=== PATIENT | female | born 1950 | race Caucasian/White ===

== ENCOUNTER → 2017-02-08 | Outpatient (CLI) | payer MEDICARE, OTHER ==
[~2017-02-08] MED LIST: ASPI-496 PO; ASPI325T17 PO; ATOR40TA78 PO; CHOL200024 PO; CLOP75TA52 PO; CRAN500C5 PO; DONE5TAB7 PO; ESTR30CR VG; ESTR42.53 VG; FLUO20CA19 PO; GLUC1CAP48 PO; ISOS30TA8 PO; ISOS60TA36 PO; LEVO25TA2 PO; LIOT5TAB3 PO; METO-93 PO; MULT-6 PO; NITR0.4T28 SL; OMEG500C3 PO; ORLI60CA2 PO; POLY17PO5 PO; TICA90TA PO; UBID100C41 PO; VITA150T PO
== END | disposition home or self-care (01) ==
LOC: CVU 06:35
PROVIDERS: ATTEND Physician Assistant Medical
DX: I08.0 Rheumatic disorders of both mitral and aortic valves (principal); I77.819 Aortic ectasia, unspecified site; I70.202 Unspecified atherosclerosis of native arteries of extremities, left leg; I25.10 Atherosclerotic heart disease of native coronary artery without angina pectoris; I70.0 Atherosclerosis of aorta; I10 Essential (primary) hypertension; E78.5 Hyperlipidemia, unspecified; I25.2 Old myocardial infarction; Z87.891 Personal history of nicotine dependence; Z82.49 Family history of ischemic heart disease and other diseases of the circulatory system
CPT/HCPCS: 93306; 93978

== ENCOUNTER → 2017-04-25 | Outpatient (CLI) | payer MEDICARE, OTHER | END | disposition home or self-care (01) | LOC: CVU 09:34 | PROVIDERS: ATTEND Registered Nurse | DX: I70.213 Atherosclerosis of native arteries of extremities with intermittent claudication, bilateral legs (principal); R41.3 Other amnesia; R53.1 Weakness; E78.5 Hyperlipidemia, unspecified; I10 Essential (primary) hypertension; I25.10 Atherosclerotic heart disease of native coronary artery without angina pectoris; I25.2 Old myocardial infarction; Z87.891 Personal history of nicotine dependence; Z95.5 Presence of coronary angioplasty implant and graft | CPT/HCPCS: 93922; 95819 ==

== ENCOUNTER 2017-05-03 11:16 | Emergency (ER) | payer MEDICARE, OTHER ==
[~2017-05-03] VITALS: Ht 162.6 cm; Wt 79.0 kg
[2017-05-03 13:36] LABS: BASOPHILS # (AUTO) 0.03 x10^3/uL (0-0.1); BASOPHILS % (AUTO) 1 % (0-1); EOSINOPHILS # (AUTO) 0.06 x10^3/uL (0-0.4); EOSINOPHILS % (AUTO) 2 % (1-7); LYMPHOCYTES # (AUTO) 0.52 x10^3/uL (1-3.4); LYMPHOCYTES % (AUTO) 14 % (22-44); MD NO; MEAN CORPUSCULAR HGB CONC 33.5 g/dL (32.4-35.8); MEAN CORPUSCULAR VOLUME 92.3 fL (80-100); MEAN PLATELET VOLUME 8.7 fL (7.4-10.4); MONOCYTES # (AUTO) 0.32 x10^3/uL (0.2-0.8); MONOCYTES % (AUTO) 8 % (2-9); NEUTROPHILS # (AUTO) 2.85 x10^3/uL (1.8-6.8); NEUTROPHILS % (AUTO) 75 % (42-75); PLATELET COUNT 164 x10^3/uL (130-400); RED BLOOD COUNT 4.25 x10^6/uL (3.82-5.3); RED CELL DISTRIBUTION WIDTH 13.8 % (9.6-15.2)
[2017-05-03 13:48] LABS: ANION GAP 7 mmol/L (5-15); CALCIUM 8.5 mg/dL (8.5-10.1); CHLORIDE 105 mmol/L (98-107); CREATININE 0.69 mg/dL (0.55-1.02)
[2017-05-03 13:51] LABS: TROPONIN I < 0.015 ng/mL (0.000-0.045)
[2017-05-03 14:04] VITALS: BP 158/70
== END 2017-05-03 14:45 | disposition home or self-care (01) ==
LOC: ED 14:39
DX: R06.00 Dyspnea, unspecified (principal); Z87.891 Personal history of nicotine dependence; I25.10 Atherosclerotic heart disease of native coronary artery without angina pectoris
CPT/HCPCS: 36415; 80048; 84484; 85025; 93005; 99285

== ENCOUNTER 2017-07-03 09:18 | Emergency (ER) | payer MEDICARE, OTHER ==
[~2017-07-03] VITALS: Ht 165.1 cm; Wt 85.0 kg
[2017-07-03] MEDS ORDERED: ATOR20TA9 PO (09:35)
[2017-07-03] MEDS ORDERED: DONE10TA7 PO (09:35)
[2017-07-03 09:55] LABS: BASOPHILS % (AUTO) 0 % (0-1); EOSINOPHILS % (AUTO) 2 % (1-7); LYMPHOCYTES # (AUTO) 0.47 x10^3/uL (1-3.4); LYMPHOCYTES % (AUTO) 9 % (22-44); MD NO; MEAN CORPUSCULAR HGB CONC 33.9 g/dL (32.4-35.8); MEAN CORPUSCULAR VOLUME 91.2 fL (80-100); MEAN PLATELET VOLUME 8.5 fL (7.4-10.4); MONOCYTES # (AUTO) 0.32 x10^3/uL (0.2-0.8); MONOCYTES % (AUTO) 6 % (2-9); NEUTROPHILS # (AUTO) 4.27 x10^3/uL (1.8-6.8); NEUTROPHILS % (AUTO) 83 % (42-75); PLATELET COUNT 196 x10^3/uL (130-400); RED BLOOD COUNT 4.55 x10^6/uL (3.82-5.3); RED CELL DISTRIBUTION WIDTH 13.6 % (9.6-15.2)
[2017-07-03 10:01] LABS: PROTHROMBIN TIME 10.4 Seconds (9.6-11.5)
[2017-07-03 10:04] LABS: ALBUMIN 3.6 g/dL (3.4-5.0); ANION GAP 8 mmol/L (5-15); CALCIUM 9.3 mg/dL (8.5-10.1); CHLORIDE 102 mmol/L (98-107)
[2017-07-03 10:09] LABS: ALANINE AMINOTRANSFERASE 32 U/L (12-78); ALKALINE PHOSPHATASE 80 U/L (45-117); BILIRUBIN,TOTAL 0.7 mg/dL (0.2-1.0); CREATININE 0.97 mg/dL (0.55-1.02); TOTAL PROTEIN 7.3 g/dL (6.4-8.2); TROPONIN I < 0.015 ng/mL (0.000-0.045)
[2017-07-03 11:34] VITALS: BP 118/82
== END 2017-07-03 12:37 | disposition home or self-care (01) ==
LOC: ED 10:28
DX: R53.1 Weakness (principal); E03.9 Hypothyroidism, unspecified; E78.5 Hyperlipidemia, unspecified; F32.9 Major depressive disorder, single episode, unspecified; I25.10 Atherosclerotic heart disease of native coronary artery without angina pectoris; I25.2 Old myocardial infarction; Z90.49 Acquired absence of other specified parts of digestive tract; Z95.5 Presence of coronary angioplasty implant and graft
CPT/HCPCS: 36415; 71045; 80053; 84484; 85025; 85610; 85730; 93005; 99285

== ENCOUNTER → 2017-09-19 | Outpatient (CLI) | payer MEDICARE, OTHER ==
[~2017-09-19] MED LIST changes: +ATOR20TA9 PO; +DONE10TA7 PO; +REGADENOSON 0.4 MG/5 ML SYRINGE ONE
== END | disposition home or self-care (01) ==
LOC: RAD 11:02
PROVIDERS: ATTEND Nurse Practitioner Family
DX: I21.19 ST elevation (STEMI) myocardial infarction involving other coronary artery of inferior wall (principal); I25.89 Other forms of chronic ischemic heart disease; I25.10 Atherosclerotic heart disease of native coronary artery without angina pectoris
CPT/HCPCS: 78452; 93017; A9502; J2785

== ENCOUNTER → 2017-10-09 | Outpatient (CLI) | payer MEDICARE, OTHER ==
[~2017-10-09] MED LIST changes: -REGADENOSON 0.4 MG/5 ML SYRINGE ONE
[2017-10-09 11:28] LABS: MICROSCOPIC NOT IND
== END | disposition home or self-care (01) ==
LOC: CFH 10:55
PROVIDERS: ATTEND Obstetrics & Gynecology Female Pelvic Medicine and Reconstructive Surgery
DX: N39.0 Urinary tract infection, site not specified (principal)
CPT/HCPCS: 81003; 87086

== ENCOUNTER → 2017-11-27 | Outpatient (CLI) | payer MEDICARE, OTHER | END | disposition home or self-care (01) | LOC: RAD 08:55 | PROVIDERS: ATTEND Registered Nurse | DX: M47.893 Other spondylosis, cervicothoracic region (principal); M71.38 Other bursal cyst, other site | CPT/HCPCS: 72141; 72148 ==

== ENCOUNTER → 2018-04-25 | Outpatient (CLI) | payer MEDICARE, OTHER ==
[~2018-04-25] MED LIST changes: +ATOR20TA37 PO; -ATOR20TA9 PO
[2018-04-25 10:16] LABS: BASOPHILS # (AUTO) 0.03 x10^3/uL (0-0.1); BASOPHILS % (AUTO) 1 % (0-1); EOSINOPHILS % (AUTO) 3 % (1-7); LYMPHOCYTES # (AUTO) 0.73 x10^3/uL (1-3.4); LYMPHOCYTES % (AUTO) 20 % (22-44); MD NO; MEAN CORPUSCULAR HEMOGLOBIN 32.6 pg (27.0-34.8); MEAN CORPUSCULAR HGB CONC 34.3 g/dL (32.4-35.8); MEAN PLATELET VOLUME 8.5 fL (7.4-10.4); MONOCYTES # (AUTO) 0.35 x10^3/uL (0.2-0.8); MONOCYTES % (AUTO) 9 % (2-9); NEUTROPHILS # (AUTO) 2.51 x10^3/uL (1.8-6.8); NEUTROPHILS % (AUTO) 68 % (42-75); PLATELET COUNT 165 x10^3/uL (130-400); RED BLOOD COUNT 4.09 x10^6/uL (3.82-5.3); RED CELL DISTRIBUTION WIDTH 13.4 % (9.6-15.2)
[2018-04-25 13:11] LABS: CHLORIDE 106 mmol/L (98-107)
[2018-04-25 13:27] LABS: ALANINE AMINOTRANSFERASE 32 U/L (12-78); ALBUMIN 3.8 g/dL (3.4-5.0); ALKALINE PHOSPHATASE 78 U/L (45-117); ANION GAP 6 mmol/L (5-15); BILIRUBIN,TOTAL 0.6 mg/dL (0.2-1.0); CALCIUM 9.2 mg/dL (8.5-10.1); CHOL/HDL RATIO 1.8; CHOLESTEROL, TOTAL 164 mg/dL (140-239); CREATININE 0.86 mg/dL (0.55-1.02); HDL CHOL % 55 % (28-40); HDL CHOLESTEROL (DIRECT) 90 mg/dL (40-60); LDL CHOLESTEROL,CALCULATED 62 mg/dL (54-169); LDL/HDL RATIO 0.7 (0.5-3.0); TOTAL PROTEIN 7.1 g/dL (6.4-8.2); TRIGLYCERIDES 61 mg/dL (50-200); VLDL CHOLESTEROL 12 mg/dL (0-25)
== END | disposition home or self-care (01) ==
LOC: CVU 08:15
PROVIDERS: ATTEND Internal Medicine Cardiovascular Disease
DX: I35.8 Other nonrheumatic aortic valve disorders (principal); I25.10 Atherosclerotic heart disease of native coronary artery without angina pectoris; I10 Essential (primary) hypertension; I71.4 Abdominal aortic aneurysm, without rupture
CPT/HCPCS: 0399T; 36415; 80053; 80061; 85025; 93306; 93978

== ENCOUNTER → 2018-07-23 | Outpatient (CLI) | payer MEDICARE, OTHER | END | disposition home or self-care (01) | LOC: CFH 10:15 | PROVIDERS: ATTEND Nurse Practitioner Family | DX: I71.4 Abdominal aortic aneurysm, without rupture (principal) | CPT/HCPCS: 93978 ==

== ENCOUNTER 2019-01-19 16:01 | Inpatient (IN) | payer MEDICARE, OTHER ==
[~2019-01-19] VITALS: Ht 163.8 cm; Wt 85.8 kg
[~2019-01-19 16:01] MED LIST changes: +LIOT5TAB11 PO; -LIOT5TAB3 PO
[2019-01-19] MEDS ORDERED: FURO20TA3 PO (16:27)
[2019-01-19] MEDS ORDERED: POTA10TA31 PO (16:27)
[2019-01-19] MEDS ORDERED: MEMA5TAB PO (16:27)
[2019-01-19] MEDS ORDERED: METO25TA35 PO (16:27)
--- NOTE | 2019-01-19 16:30 | NUR ---
PT TO ED FOR SOB WHILE WALKING TODAY AT 1540. HX MS WITH STENTS. PT STATES MINIMAL RELIEF WTIH 1 NITRO SL. PT DENIES S/S AT THIS TIME. PT STATES INCRASED ANXIETY. PT CONNECTED TO MONITORS. VSS ON RA. NO NEEDS EXPRESSED. AWAITING EDMD ASSESSMENT.
--- NOTE | 2019-01-19 17:02 | NUR ---
PT RSTING IN ROOM. VSS. DR. DURAND TO BS FOR ASSESSMENT. AWAITING FURTHER ORDERS AND LAB RESULTS.
--- NOTE | 2019-01-19 17:23 | NUR ---
pt medicated per jun. tolerated well. vss. awaiting room assignment.
[2019-01-19 17:26] LABS: BASOPHILS # (AUTO) 0.01 x10^3/uL (0-0.1); BASOPHILS % (AUTO) 0 % (0-1); EOSINOPHILS % (AUTO) 0 % (1-7); LYMPHOCYTES # (AUTO) 0.58 x10^3/uL (1-3.4); LYMPHOCYTES % (AUTO) 8 % (22-44); MD NO; MEAN CORPUSCULAR HEMOGLOBIN 32.2 pg (27.0-34.8); MEAN CORPUSCULAR HGB CONC 33.4 g/dL (32.4-35.8); MEAN CORPUSCULAR VOLUME 96.6 fL (80-100); MEAN PLATELET VOLUME 9.1 fL (7.4-10.4); MONOCYTES # (AUTO) 0.47 x10^3/uL (0.2-0.8); MONOCYTES % (AUTO) 6 % (2-9); NEUTROPHILS # (AUTO) 6.25 x10^3/uL (1.8-6.8); NEUTROPHILS % (AUTO) 86 % (42-75); PLATELET COUNT 178 x10^3/uL (130-400); RED BLOOD COUNT 4.04 x10^6/uL (3.82-5.3); RED CELL DISTRIBUTION WIDTH 13.3 % (9.6-15.2)
[2019-01-19 17:33] LABS: ALBUMIN 3.6 g/dL (3.4-5.0); ANION GAP 8 mmol/L (5-15); CALCIUM 9.1 mg/dL (8.5-10.1); CHLORIDE 104 mmol/L (98-107)
[2019-01-19 17:39] LABS: ALANINE AMINOTRANSFERASE 27 U/L (12-78); ALKALINE PHOSPHATASE 92 U/L (45-117); BILIRUBIN,TOTAL 0.8 mg/dL (0.2-1.0); CREATININE 0.92 mg/dL (0.55-1.02); TROPONIN I < 0.015 ng/mL (0.000-0.045)
--- NOTE | 2019-01-19 18:02 | NUR ---
AT BEDSIDE RE-EVALUATING PT. POC DISCUSSED WITH PT TO BE ADMITTED
[2019-01-19] MEDS ORDERED: BISACODYL 10 MG SUPP PR PRN (19:00)
[2019-01-19] MEDS ORDERED: ONDANSETRON ODT 4 MG PO PRN (19:00)
[2019-01-19] MEDS ORDERED: NITROGLYCERIN 0.4 MG BOTTLE (25 TABS) SL PRN (19:00)
[2019-01-19] MEDS ORDERED: morphine SULFATE 10 MG/ML, 1ML IVPush PRN (19:00)
[2019-01-19] MEDS ORDERED: POLYETHYLENE GLYCOL 17 GM PACKET PO PRN (19:00)
[2019-01-19] MEDS ORDERED: ACETAMINOPHEN 325 MG TABLET PO PRN (19:00)
--- NOTE | 2019-01-19 19:13 | NUR ---
PT RESTING IN ROOM WITH FAMILY AT BS. VSS. NO NEEDS EXPRESSED. REPORT ATTEMPTED X1. RN WILL CALL BACK.
--- NOTE | 2019-01-19 19:40 | NUR ---
REPORT TO JACKSON BARBA. PT READY FOR TRANSPORT.
[2019-01-19] MEDS ORDERED: METOPROLOL TARTRATE 25 MG TABLET PO SCH (21:00)
[2019-01-19] MEDS ORDERED: TEMPLATE NON-FORMULARY MED. (Gluc 2KCL/Chondr/Coll Hy/Hy Ac** (Glucosamine & Chondroitin C PO SCH (21:00)
[2019-01-19] MEDS ORDERED: DIPHENHYDRAMINE 25 MG CAPSULE PO ONE (21:00)
[2019-01-19] MEDS ORDERED: ATORVASTATIN 20 MG TABLET PO SCH (21:00)
[2019-01-19] MEDS: HEPARIN 5,000 UNITS/ML, 1ML SQ SCH (21:24)
[2019-01-19] MEDS: MEMANTINE 5MG TABLET PO SCH (21:25)
[2019-01-19] MEDS: OMEGA-3/FISH OIL CAPSULE PO SCH (21:25)
[2019-01-19] MEDS: POTASSIUM CHLORIDE 10 MEQ TABLET.ER PO SCH (21:25)
[2019-01-19] MEDS: FUROSEMIDE 20 MG TABLET PO SCH (21:25)
[2019-01-19] MEDS: SODIUM CHLORIDE FLUSH 10ML SYR IVF SCH (21:27)
[2019-01-19 23:38] LABS: TROPONIN I < 0.015 ng/mL (0.000-0.045)
[2019-01-20 01:37] VITALS: BP 108/56
[2019-01-20 05:24] LABS: BASOPHILS # (AUTO) 0.03 x10^3/uL (0-0.1); BASOPHILS % (AUTO) 1 % (0-1); EOSINOPHILS # (AUTO) 0.21 x10^3/uL (0-0.4); EOSINOPHILS % (AUTO) 5 % (1-7); LYMPHOCYTES # (AUTO) 0.72 x10^3/uL (1-3.4); LYMPHOCYTES % (AUTO) 18 % (22-44); MD NO; MEAN CORPUSCULAR HEMOGLOBIN 32.1 pg (27.0-34.8); MEAN CORPUSCULAR HGB CONC 33.2 g/dL (32.4-35.8); MEAN CORPUSCULAR VOLUME 96.7 fL (80-100); MEAN PLATELET VOLUME 9.1 fL (7.4-10.4); MONOCYTES # (AUTO) 0.38 x10^3/uL (0.2-0.8); MONOCYTES % (AUTO) 10 % (2-9); NEUTROPHILS # (AUTO) 2.63 x10^3/uL (1.8-6.8); NEUTROPHILS % (AUTO) 67 % (42-75); PLATELET COUNT 153 x10^3/uL (130-400); RED BLOOD COUNT 3.75 x10^6/uL (3.82-5.3); RED CELL DISTRIBUTION WIDTH 13.9 % (9.6-15.2)
[2019-01-20 05:52] LABS: ANION GAP 5 mmol/L (5-15); CALCIUM 8.4 mg/dL (8.5-10.1); CHLORIDE 108 mmol/L (98-107)
[2019-01-20 05:58] LABS: ALANINE AMINOTRANSFERASE 22 U/L (12-78); ALKALINE PHOSPHATASE 81 U/L (45-117); BILIRUBIN,TOTAL 0.7 mg/dL (0.2-1.0); CREATININE 0.87 mg/dL (0.55-1.02); TOTAL PROTEIN 6.1 g/dL (6.4-8.2); TROPONIN I < 0.015 ng/mL (0.000-0.045)
[2019-01-20] MEDS ORDERED: LEVOTHYROXINE 25 MCG TABLET PO SCH (06:00)
[2019-01-20] MEDS: HEPARIN 5,000 UNITS/ML, 1ML SQ SCH ×2 (06:13→13:00)
[2019-01-20 07:30] VITALS: BP 105/49
[2019-01-20] MEDS ORDERED: ASPIRIN 81 MG TABLET EC PO SCH (09:00)
[2019-01-20] MEDS ORDERED: CRANBERRY 500 MG PO SCH (09:00)
[2019-01-20] MEDS ORDERED: SENNA/DOCUSATE TABLET PO SCH (09:00)
[2019-01-20] MEDS ORDERED: TEMPLATE NON-FORMULARY MED. (Ubidecarenone** (Co Q-10**) 200 MG) PO SCH (09:00)
[2019-01-20] MEDS ORDERED: DONEPEZIL 10 MG TABLET PO SCH (09:00)
[2019-01-20] MEDS: SODIUM CHLORIDE FLUSH 10ML SYR IVF SCH (09:00)
[2019-01-20] MEDS ORDERED: LIOTHYRONINE 5 MCG TABLET PO SCH (09:00)
[2019-01-20] MEDS ORDERED: MULTIVITS,STRESS FORMULA 1 TABLET PO SCH (09:00)
[2019-01-20] MEDS ORDERED: MULTIVITAMIN 1 TABLET PO SCH (09:00)
[2019-01-20] MEDS ORDERED: FLUOXETINE HCL 20 MG CAPSULE PO SCH (09:00)
[2019-01-20] MEDS ORDERED: CHOLECALCIFEROL 1,000 UNIT TABLET PO SCH (09:00)
[2019-01-20] MEDS ORDERED: REGADENOSON 0.4 MG/5 ML SYRINGE ONE (09:45)
[2019-01-20 13:15] VITALS: BP 125/54
[2019-01-20] MEDS: POTASSIUM CHLORIDE 10 MEQ TABLET.ER PO SCH (14:19)
[2019-01-20] MEDS: OMEGA-3/FISH OIL CAPSULE PO SCH (14:20)
[2019-01-20] MEDS: FUROSEMIDE 20 MG TABLET PO SCH (14:20)
[2019-01-20] MEDS: MEMANTINE 5MG TABLET PO SCH (14:20)
== END 2019-01-20 15:19 | disposition home or self-care (01) | DRG 303 ==
LOC: ED 17:24 → EDIP 17:53 → 5SO 20:05 → DCLOUNGE 01-20 15:16
PROVIDERS: ADMIT Internal Medicine; ATTEND Internal Medicine
DX: I25.10 Atherosclerotic heart disease of native coronary artery without angina pectoris (principal); I25.2 Old myocardial infarction; I10 Essential (primary) hypertension; E03.9 Hypothyroidism, unspecified; F32.9 Major depressive disorder, single episode, unspecified; E78.5 Hyperlipidemia, unspecified; F03.90 Unspecified dementia, unspecified severity, without behavioral disturbance, psychotic disturbance, mood disturbance, and anxiety; Z95.5 Presence of coronary angioplasty implant and graft; Z85.828 Personal history of other malignant neoplasm of skin; Z90.49 Acquired absence of other specified parts of digestive tract; Z82.49 Family history of ischemic heart disease and other diseases of the circulatory system; Z79.899 Other long term (current) drug therapy
CPT/HCPCS: 36415; 71045; 78452; 80053; 84443; 84484; 85025; 93005; 93017; 93306; G0378; J1644; J2785; A9502; C9898

== ENCOUNTER 2019-02-27 08:42 | Outpatient (CLI) | payer MEDICARE, OTHER ==
[~2019-02-27 08:42] MED LIST changes: +FURO20TA3 PO; +MEMA5TAB PO; +METO25TA35 PO; +POTA10TA31 PO
== END 2019-02-27 23:59 | disposition home or self-care (01) ==
LOC: CFH 08:42
PROVIDERS: ATTEND Internal Medicine Cardiovascular Disease
DX: I71.4 Abdominal aortic aneurysm, without rupture (principal); Z85.89 Personal history of malignant neoplasm of other organs and systems; Z87.891 Personal history of nicotine dependence
CPT/HCPCS: 93978

== ENCOUNTER 2019-03-08 16:27 | Emergency (ER) | payer MEDICARE ==
[~2019-03-08] VITALS: Ht 162.6 cm; Wt 87.0 kg
--- NOTE | 2019-03-08 16:52 | NUR ---
PT C/O CHEST TIGHTNESS/DISCOMFORT TODAY ABOUT 1500. HX NC. PT WENT TO [employer], AT LUNCH AT [facility], THEN WENT [employer] FOR ABOUT AN HOUR. PT SITTING IN CHAIR AT HOME WHEN TIGHTNESS STARTED, WHICH IS ABNORMAL FOR HER. PT CONNECTED TO MONITORING. SPOUSE AT BEDSIDE. AWAITING ORDERS AT THIS TIME.
--- NOTE | 2019-03-08 17:28 | NUR ---
Break RN: Pt resting comfortaby, pain free, WPD at this time. IV est, labs drawn & sent. Call light in reach, @ BS. Both aware of POC.
[2019-03-08 17:31] LABS: BASOPHILS # (AUTO) 0.04 x10^3/uL (0-0.1); BASOPHILS % (AUTO) 1 % (0-1); EOSINOPHILS # (AUTO) 0.19 x10^3/uL (0-0.4); EOSINOPHILS % (AUTO) 4 % (1-7); LYMPHOCYTES # (AUTO) 0.67 x10^3/uL (1-3.4); LYMPHOCYTES % (AUTO) 13 % (22-44); MD NO; MEAN CORPUSCULAR HEMOGLOBIN 32.4 pg (27.0-34.8); MEAN CORPUSCULAR HGB CONC 33.5 g/dL (32.4-35.8); MEAN CORPUSCULAR VOLUME 96.8 fL (80-100); MEAN PLATELET VOLUME 9.1 fL (7.4-10.4); MONOCYTES # (AUTO) 0.48 x10^3/uL (0.2-0.8); MONOCYTES % (AUTO) 9 % (2-9); NEUTROPHILS # (AUTO) 3.84 x10^3/uL (1.8-6.8); NEUTROPHILS % (AUTO) 74 % (42-75); PLATELET COUNT 166 x10^3/uL (130-400); RED BLOOD COUNT 3.69 x10^6/uL (3.82-5.3); RED CELL DISTRIBUTION WIDTH 13.7 % (9.6-15.2)
[2019-03-08 17:43] LABS: ALBUMIN 3.1 g/dL (3.4-5.0); CHLORIDE 105 mmol/L (98-107); CREATININE 0.99 mg/dL (0.55-1.02)
[2019-03-08 17:47] LABS: TROPONIN I < 0.015 ng/mL (0.000-0.045)
[2019-03-08 17:53] LABS: ANION GAP 2 mmol/L (5-15)
--- NOTE | 2019-03-08 18:03 | NUR ---
ALL RESULTS ARE BACK AT THIS TIME. CHART UP FOR RECHECK.
[2019-03-08] MEDS ORDERED: ACETAMINOPHEN 325 MG TABLET PO ONE (18:30)
--- NOTE | 2019-03-08 18:59 | NUR ---
PT AMBULATED AROUND ER WITH STEADY GAIT. PT STATES SHE FEELS BETTER AFTER WALKING AROUND.
[2019-03-08] MEDS ORDERED: ACETAMINOPHEN 325 MG TABLET ONE (19:03)
--- NOTE | 2019-03-08 19:10 | NUR ---
MEDS ADMIN PER JUN. PT RESTING ON [place] WATCHING TV. AT BEDSIDE.
--- NOTE | 2019-03-08 20:20 | NUR ---
LAB AT BEDSIDE FOR TROP RETEST.
[2019-03-08 20:24] VITALS: BP 144/58
[2019-03-08 20:40] LABS: TROPONIN I < 0.015 ng/mL (0.000-0.045)
== END 2019-03-08 21:20 | disposition home or self-care (01) ==
LOC: ED 17:26
DX: R07.89 Other chest pain (principal); R06.02 Shortness of breath; I11.0 Hypertensive heart disease with heart failure; I50.9 Heart failure, unspecified; I25.10 Atherosclerotic heart disease of native coronary artery without angina pectoris; I25.2 Old myocardial infarction; E78.5 Hyperlipidemia, unspecified; E03.9 Hypothyroidism, unspecified; Z90.89 Acquired absence of other organs; Z98.61 Coronary angioplasty status
CPT/HCPCS: 36415; 71045; 80048; 82040; 84484; 85025; 93005; 99284

== ENCOUNTER 2019-03-21 10:56 | Inpatient (IN) | payer MEDICARE ==
[~2019-03-21] VITALS: Ht 165.1 cm; Wt 84.7 kg
[2019-03-21] MEDS ORDERED: SODIUM CHLORIDE FLUSH 10ML SYR IVF ONE (11:30)
[2019-03-21] MEDS ORDERED: NITROGLYCERIN SINGLE TAB 0.4 MG SL PRN ×2 (11:30→14:00)
[2019-03-21] MEDS ORDERED: ASPIRIN 81 MG TABLET CHEW PO ONE (11:30)
[2019-03-21 11:39] LABS: BASOPHILS # (AUTO) 0.01 x10^3/uL (0-0.1); BASOPHILS % (AUTO) 0 % (0-1); EOSINOPHILS # (AUTO) 0.21 x10^3/uL (0-0.4); EOSINOPHILS % (AUTO) 4 % (1-7); LYMPHOCYTES # (AUTO) 0.43 x10^3/uL (1-3.4); LYMPHOCYTES % (AUTO) 9 % (22-44); MD NO; MEAN CORPUSCULAR HEMOGLOBIN 32.1 pg (27.0-34.8); MEAN CORPUSCULAR HGB CONC 33.2 g/dL (32.4-35.8); MEAN CORPUSCULAR VOLUME 96.7 fL (80-100); MEAN PLATELET VOLUME 9.2 fL (7.4-10.4); MONOCYTES # (AUTO) 0.29 x10^3/uL (0.2-0.8); MONOCYTES % (AUTO) 6 % (2-9); NEUTROPHILS # (AUTO) 3.79 x10^3/uL (1.8-6.8); NEUTROPHILS % (AUTO) 80 % (42-75); PLATELET COUNT 187 x10^3/uL (130-400); RED BLOOD COUNT 4.03 x10^6/uL (3.82-5.3); RED CELL DISTRIBUTION WIDTH 13.8 % (9.6-15.2)
--- NOTE | 2019-03-21 11:40 | NUR ---
PT C/O CHEST PRESSURE, NON REPRODUCIBLE, WITH SOB. PT DENEIS COUGH, FEVERS/CHILLS. PT HAS HX OF SAME WITH THREE STENTS. PT ON MONITOR. EKG DONE.
[2019-03-21] MEDS ORDERED: NITROGLYCERIN SINGLE TAB 0.4 MG SL ONE (11:42)
[2019-03-21] MEDS ORDERED: ASPIRIN 81 MG TABLET CHEW ONE (11:43)
[2019-03-21 11:52] LABS: ALBUMIN 3.3 g/dL (3.4-5.0); ANION GAP 6 mmol/L (5-15); CALCIUM 8.8 mg/dL (8.5-10.1); CHLORIDE 107 mmol/L (98-107); CREATININE 0.94 mg/dL (0.55-1.02)
[2019-03-21 11:56] LABS: TROPONIN I < 0.015 ng/mL (0.000-0.045)
--- NOTE | 2019-03-21 12:00 | NUR ---
NO RELIEF OF CP AFTER NITRO. DR. CABRERA AWARE.
[2019-03-21] MEDS ORDERED: SODIUM CHLORIDE FLUSH 10ML SYR IVF PRN (13:00)
--- NOTE | 2019-03-21 13:18 | NUR ---
DR. MALONE AT BEDSIDE FOR ADMIT. WAITING FOR BED. PT WAS UP TO RESTROOM AGAIN. PT DENIES CP NOW.
[2019-03-21] MEDS ORDERED: CHOL500015 PO (13:26)
[2019-03-21] MEDS ORDERED: hydrALAzine 20 MG/ML, 1ML IVPush PRN (14:00)
[2019-03-21] MEDS ORDERED: ONDANSETRON 2MG/ML, 2ML IVPush PRN (14:00)
[2019-03-21] MEDS ORDERED: MORPHINE SULFATE 4 MG/ML, 1ML IVPush PRN (14:00)
[2019-03-21] MEDS ORDERED: TEMAZEPAM 15 MG CAPSULE PO PRN (14:00)
[2019-03-21] MEDS ORDERED: ACETAMINOPHEN 325 MG TABLET PO PRN (14:00)
--- NOTE | 2019-03-21 14:15 | NUR ---
PT IS A TELE HOLD. HOSPITAL BED REQUESTED. 3 P'S ADDRESSED.
[2019-03-21] MEDS ORDERED: POTASSIUM CHLORIDE 20 MEQ TAB.ER.PRT ONE (14:29)
[2019-03-21] MEDS ORDERED: ENOXAPARIN 40 MG/0.4 ML ONE (14:29)
[2019-03-21] MEDS: POTASSIUM CHLORIDE 20 MEQ TAB.ER.PRT PO SCH (14:35)
[2019-03-21] MEDS: ENOXAPARIN 40 MG/0.4 ML SQ SCH (14:39)
[2019-03-21] MEDS ORDERED: FUROSEMIDE 40 MG/4 ML IV SCH (17:00)
[2019-03-21] MEDS: FUROSEMIDE 40 MG/4 ML IV SCH (17:00)
[2019-03-21 18:25] LABS: TROPONIN I < 0.015 ng/mL (0.000-0.045)
[2019-03-21 19:49] VITALS: BP 118/71
[2019-03-21] MEDS: MEMANTINE 5MG TABLET PO SCH (19:54)
[2019-03-21] MEDS: METOPROLOL TARTRATE 25 MG TABLET PO SCH (19:54)
[2019-03-21] MEDS: ATORVASTATIN 80 MG TABLET PO SCH (19:54)
[2019-03-21 23:48] LABS: TROPONIN I < 0.015 ng/mL (0.000-0.045)
[2019-03-22 01:07] VITALS: BP 111/65
[2019-03-22 05:56] LABS: ANION GAP 5 mmol/L (5-15); CHLORIDE 107 mmol/L (98-107); CREATININE 0.88 mg/dL (0.55-1.02)
[2019-03-22 07:29] VITALS: BP 136/69
[2019-03-22] MEDS: MEMANTINE 5MG TABLET PO SCH ×2 (07:42→19:35)
[2019-03-22] MEDS: FLUOXETINE HCL 20 MG CAPSULE PO SCH (07:42)
[2019-03-22] MEDS: ASPIRIN 81 MG TABLET EC PO SCH (07:43)
[2019-03-22] MEDS: DONEPEZIL 10 MG TABLET PO SCH (07:43)
[2019-03-22] MEDS: FUROSEMIDE 40 MG/4 ML IV SCH (07:43)
[2019-03-22] MEDS: LEVOTHYROXINE 25 MCG TABLET PO SCH (07:53)
[2019-03-22] MEDS: POTASSIUM CHLORIDE 20 MEQ TAB.ER.PRT PO SCH (09:40)
[2019-03-22] MEDS: CHOLECALCIFEROL 5,000u TAB PO SCH (09:40)
[2019-03-22] MEDS: MULTIVITAMIN 1 TABLET PO SCH (09:40)
[2019-03-22] MEDS: ENOXAPARIN 40 MG/0.4 ML SQ SCH (14:00)
[2019-03-22 15:20] LABS: CULTURE INDICATED? YES; MICROSCOPIC INDICATED
[2019-03-22 16:57] VITALS: BP 118/64
[2019-03-22] MEDS: CEPHALEXIN 500 MG CAPSULE PO SCH (17:38)
[2019-03-22 18:45] VITALS: BP 117/64
[2019-03-22] MEDS: METOPROLOL TARTRATE 25 MG TABLET PO SCH (19:35)
[2019-03-22] MEDS: ATORVASTATIN 80 MG TABLET PO SCH (19:35)
[2019-03-23 02:00] VITALS: BP 111/61
[2019-03-23] MEDS: LEVOTHYROXINE 25 MCG TABLET PO SCH (05:04)
[2019-03-23] MEDS: CEPHALEXIN 500 MG CAPSULE PO SCH (05:04)
[2019-03-23 08:04] VITALS: BP 134/74
[2019-03-23] MEDS: MULTIVITAMIN 1 TABLET PO SCH (08:26)
[2019-03-23] MEDS: CHOLECALCIFEROL 5,000u TAB PO SCH (08:26)
[2019-03-23] MEDS: MEMANTINE 5MG TABLET PO SCH (08:27)
[2019-03-23] MEDS: DONEPEZIL 10 MG TABLET PO SCH (08:27)
[2019-03-23] MEDS: POTASSIUM CHLORIDE 20 MEQ TAB.ER.PRT PO SCH (08:27)
[2019-03-23] MEDS: ASPIRIN 81 MG TABLET EC PO SCH (08:29)
[2019-03-23] MEDS: FLUOXETINE HCL 20 MG CAPSULE PO SCH (08:29)
[2019-03-23] MEDS ORDERED: FUROSEMIDE 20 MG TABLET PO SCH (09:00)
[2019-03-23] MEDS ORDERED: CEPH-376 PO (10:51)
== END 2019-03-23 12:35 | disposition home or self-care (01) | DRG 313 ==
LOC: ED 12:20 → EDIP 12:43 → SUATTDRO 12:48 → 5SO 15:51 → DCLOUNGE 03-23 12:12
PROVIDERS: ADMIT Emergency Medicine; ATTEND Family Medicine
DX: R07.9 Chest pain, unspecified (principal); N39.0 Urinary tract infection, site not specified; I50.32 Chronic diastolic (congestive) heart failure; E03.9 Hypothyroidism, unspecified; E78.5 Hyperlipidemia, unspecified; F03.90 Unspecified dementia, unspecified severity, without behavioral disturbance, psychotic disturbance, mood disturbance, and anxiety; F32.9 Major depressive disorder, single episode, unspecified; B95.2 Enterococcus as the cause of diseases classified elsewhere; I11.0 Hypertensive heart disease with heart failure; I25.2 Old myocardial infarction; Z79.82 Long term (current) use of aspirin; Z82.49 Family history of ischemic heart disease and other diseases of the circulatory system; Z87.891 Personal history of nicotine dependence; Z85.828 Personal history of other malignant neoplasm of skin; Z90.49 Acquired absence of other specified parts of digestive tract; Z95.5 Presence of coronary angioplasty implant and graft; I25.10 Atherosclerotic heart disease of native coronary artery without angina pectoris
CPT/HCPCS: 36415; 71045; 80048; 81001; 82040; 83735; 83880; 84100; 84443; 84484; 85025; 87077; 87086; 87186; 93005; 96372; 96374; 96376; G0378; J1650; J1940

== ENCOUNTER 2019-05-20 14:52 | Emergency (ER) | payer MEDICARE ==
[~2019-05-20] VITALS: Ht 162.6 cm; Wt 84.9 kg
[~2019-05-20 14:52] MED LIST changes: +CEPH-376 PO; +CHOL500015 PO
--- NOTE | 2019-05-20 15:41 | NUR ---
Pt to 29 from lobby
[2019-05-20 16:34] LABS: BASOPHILS # (AUTO) 0.02 x10^3/uL (0-0.1); BASOPHILS % (AUTO) 0 % (0-1); EOSINOPHILS # (AUTO) 0.14 x10^3/uL (0-0.4); EOSINOPHILS % (AUTO) 3 % (1-7); LYMPHOCYTES # (AUTO) 0.64 x10^3/uL (1-3.4); LYMPHOCYTES % (AUTO) 14 % (22-44); MD NO; MEAN CORPUSCULAR HEMOGLOBIN 31.6 pg (27.0-34.8); MEAN CORPUSCULAR HGB CONC 33.7 g/dL (32.4-35.8); MEAN CORPUSCULAR VOLUME 93.8 fL (80-100); MEAN PLATELET VOLUME 9.2 fL (7.4-10.4); MONOCYTES # (AUTO) 0.36 x10^3/uL (0.2-0.8); MONOCYTES % (AUTO) 8 % (2-9); NEUTROPHILS # (AUTO) 3.58 x10^3/uL (1.8-6.8); NEUTROPHILS % (AUTO) 76 % (42-75); PLATELET COUNT 199 x10^3/uL (130-400); RED BLOOD COUNT 4.12 x10^6/uL (3.82-5.3); RED CELL DISTRIBUTION WIDTH 13.3 % (9.6-15.2)
[2019-05-20 16:41] LABS: ALANINE AMINOTRANSFERASE 27 U/L (12-78); ALBUMIN 3.3 g/dL (3.4-5.0); ANION GAP 6 mmol/L (5-15); CALCIUM 8.6 mg/dL (8.5-10.1); CHLORIDE 105 mmol/L (98-107); CREATININE 0.84 mg/dL (0.55-1.02)
--- NOTE | 2019-05-20 16:41 | NUR ---
ASSUMED CARE OF PT AT THIS TIME. THIS IS A 69 YO FEMALE WHO PRESENTS TO THE ER C/O LEFT HIP/LLQ PAIN. PT NONTENDER TO PALP. REPORTS PAIN IS WORSE WITH MOVEMENT. PT REPORTS SHE HAS HAD PAIN/WEAKNESS THERE FOR A LONG TIME BUT IT HAS BEEN WORSE SINCE YESTERDAY. VERY SLIGHT WEAKNESS NOTED BY RN COMPARED TO RIGHT LEG. PT AO X 4. SKIN PWD. RESP EVEN AND UNLABORED. PT REPORTS THAT SHE RECENTLY USED THE RESTROOM, THEREFORE REQUESTS TO WAIT TO ATTEMPT URINE SAMPLE. AT BEDSIDE. PT ON CONT BP AND O2 MONITORS. CALL LIGHT WITHIN REACH. WILL CONT TO MONITOR PT.
[2019-05-20 16:43] LABS: ALKALINE PHOSPHATASE 104 U/L (45-117); BILIRUBIN,TOTAL 0.4 mg/dL (0.2-1.0); TOTAL PROTEIN 7.3 g/dL (6.4-8.2)
--- NOTE | 2019-05-20 17:30 | NUR ---
US AT BEDSIDE AT THIS TIME. PT RESTING ON GURNEY. NAD NOTED. PT APPEARS NON-TENDER DURING EXAM BY US. SKIN PWD. RESP EVEN AND UNLABORED. PT ON CONT BP AND O2 MONITORS. CALL LIGHT WITHIN REACH. WILL CONT TO MONITOR PT.
[2019-05-20 18:13] LABS: MICROSCOPIC INDICATED
--- NOTE | 2019-05-20 18:30 | NUR ---
PT CURRENTLY RESTING ON GURNEY. NAD NOTED. SKIN PWD. RESP EVEN AND UNLABORED. PT REPORTS PAIN IS 0 AT REST AND ONLY 5/10 WHEN SHE IS TRYING TO WALK. SIGNIFICICANT OTHER AT BEDSIDE. PT AND S.O. AWARE WE ARE WAITING FOR LAB RESULTS PRIOR TO RECHECK BY LOU. PT PROVIDED WITH WARM BLANKET AND REPOSITIONED FOR COMFORT. PT DENIES NEEDS AT THIS TIME. CALL LIGHT WITHIN REACH. WILL CONT TO MONITOR PT.
[2019-05-20 19:09] LABS: CULTURE INDICATED? NO
--- NOTE | 2019-05-20 19:16 | NUR ---
REPORT TO JACKSON QUINTANA WHO ASSUMED CARE OF PT.
[2019-05-20 19:43] VITALS: BP 154/67
--- NOTE | 2019-05-20 19:47 | NUR ---
Patient/Caregiver given discharge instructions and they have confirmed that they understand the instructions. Patient ambulatory with steady gait.
== END 2019-05-20 19:48 | disposition home or self-care (01) ==
LOC: ED 17:21
DX: R10.32 Left lower quadrant pain (principal); I10 Essential (primary) hypertension; I25.10 Atherosclerotic heart disease of native coronary artery without angina pectoris; I25.2 Old myocardial infarction; E78.5 Hyperlipidemia, unspecified; E03.9 Hypothyroidism, unspecified; Z90.49 Acquired absence of other specified parts of digestive tract
CPT/HCPCS: 36415; 76700; 80053; 81001; 83605; 83690; 85025; 99284

== ENCOUNTER 2019-05-28 08:46 | Emergency (ER) | payer MEDICARE ==
[~2019-05-28] VITALS: Ht 162.6 cm; Wt 82.0 kg
--- NOTE | 2019-05-28 09:12 | NUR ---
FIRST CONTACT WITH PT. PT STATES "DR ALVARENGA IS CONCERNED ABOUT AN ANEURYSM, BECAUSE MY FATHER HAD ABDOMINAL ANEURYSM" LEFT GROIN PAIN, INCREASED PAIN WITH WALKING. HAS BEEN FOR ABOUT A WEEK. ALSO HAD "DIFFICULTY BREATHING THIS AM" PT'S AOX4. RESPS EVEN AND UNLABORED. BP/SPO2 MONITORS IN PLACE. CALL LIGHT WITHIN REACH. PA AT BEDSIDE TO EVALUATE AT THIS TIME.
--- NOTE | 2019-05-28 09:21 | NUR ---
LAB AT BEDSIDE. URINE CUP GIVEN AT THIS TIME.
--- NOTE | 2019-05-28 09:30 | NUR ---
US AT BEDSIDE. PT STATES 'I'LL GO TO BR AFTER US."
[2019-05-28 09:44] LABS: ALANINE AMINOTRANSFERASE 23 U/L (12-78); ALBUMIN 3.1 g/dL (3.4-5.0); ANION GAP 7 mmol/L (5-15); CALCIUM 8.6 mg/dL (8.5-10.1); CHLORIDE 105 mmol/L (98-107); CREATININE 0.85 mg/dL (0.55-1.02)
[2019-05-28 09:46] LABS: BASOPHILS # (AUTO) 0.02 x10^3/uL (0-0.1); BASOPHILS % (AUTO) 0 % (0-1); EOSINOPHILS # (AUTO) 0.12 x10^3/uL (0-0.4); EOSINOPHILS % (AUTO) 3 % (1-7); LYMPHOCYTES % (AUTO) 10 % (22-44); MD NO; MEAN CORPUSCULAR HEMOGLOBIN 31.5 pg (27.0-34.8); MEAN CORPUSCULAR HGB CONC 33.8 g/dL (32.4-35.8); MEAN CORPUSCULAR VOLUME 93.1 fL (80-100); MEAN PLATELET VOLUME 9.2 fL (7.4-10.4); MONOCYTES # (AUTO) 0.34 x10^3/uL (0.2-0.8); MONOCYTES % (AUTO) 7 % (2-9); NEUTROPHILS % (AUTO) 80 % (42-75); PLATELET COUNT 177 x10^3/uL (130-400); RED BLOOD COUNT 4.06 x10^6/uL (3.82-5.3); RED CELL DISTRIBUTION WIDTH 13.6 % (9.6-15.2)
[2019-05-28 09:48] LABS: ALKALINE PHOSPHATASE 98 U/L (45-117); BILIRUBIN,TOTAL 0.7 mg/dL (0.2-1.0); TOTAL PROTEIN 6.8 g/dL (6.4-8.2); TROPONIN I < 0.015 ng/mL (0.000-0.045)
--- NOTE | 2019-05-28 09:49 | NUR ---
PT AMB TO BR WITH STEADY GAIT.
--- NOTE | 2019-05-28 09:59 | NUR ---
REPORT GIVEN TO ZAIRA PAZ.
--- NOTE | 2019-05-28 10:08 | NUR ---
REPORT FROM JASON PAZ. VSS. PT TO XR. UA SENT. .
[2019-05-28 10:14] LABS: MICROSCOPIC NOT IND
[2019-05-28 10:22] LABS: CULTURE INDICATED? NO
[2019-05-28 11:17] VITALS: BP 152/59
== END 2019-05-28 11:19 | disposition home or self-care (01) ==
LOC: ED 09:33
DX: S76.212A Strain of adductor muscle, fascia and tendon of left thigh, initial encounter (principal); I25.10 Atherosclerotic heart disease of native coronary artery without angina pectoris; I25.2 Old myocardial infarction; E78.5 Hyperlipidemia, unspecified; E03.9 Hypothyroidism, unspecified; I10 Essential (primary) hypertension; Z87.891 Personal history of nicotine dependence; X58.XXXA Exposure to other specified factors, initial encounter; Y93.89 Activity, other specified; Y92.89 Other specified places as the place of occurrence of the external cause; Y99.8 Other external cause status
CPT/HCPCS: 36415; 71045; 80053; 81003; 83880; 84484; 85025; 93005; 93978; 99285

== ENCOUNTER 2019-10-12 11:20 | Emergency (ER) | payer MEDICARE ==
[~2019-10-12] VITALS: Ht 162.6 cm; Wt 82.2 kg
[2019-10-12] MEDS ORDERED: MAALOX/HYOSCYAMINE/LIDOCAINE 45 ML BTL PO ONE (12:30)
[2019-10-12 12:37] VITALS: BP 147/68
[2019-10-12] MEDS ORDERED: MAALOX/HYOSCYAMINE/LIDOCAINE 45 ML BTL ONE (12:41)
--- NOTE | 2019-10-12 12:56 | NUR ---
PT ABLE TO AMBULATE STEADILY IN HALLWAY WITH CANE TO BATHROOM.
[2019-10-12 13:02] LABS: BASOPHILS # (AUTO) 0.03 x10^3/uL (0-0.1); BASOPHILS % (AUTO) 1 % (0-1); EOSINOPHILS # (AUTO) 0.04 x10^3/uL (0-0.4); EOSINOPHILS % (AUTO) 1 % (1-7); LYMPHOCYTES # (AUTO) 0.56 x10^3/uL (1-3.4); LYMPHOCYTES % (AUTO) 14 % (22-44); MD NO; MEAN CORPUSCULAR HEMOGLOBIN 31.5 pg (27.0-34.8); MEAN CORPUSCULAR HGB CONC 33.7 g/dL (32.4-35.8); MEAN PLATELET VOLUME 8.9 fL (7.4-10.4); MONOCYTES # (AUTO) 0.34 x10^3/uL (0.2-0.8); MONOCYTES % (AUTO) 9 % (2-9); NEUTROPHILS # (AUTO) 2.92 x10^3/uL (1.8-6.8); NEUTROPHILS % (AUTO) 75 % (42-75); PLATELET COUNT 149 x10^3/uL (130-400); RED BLOOD COUNT 4.14 x10^6/uL (3.82-5.3)
[2019-10-12 13:11] LABS: ALBUMIN 2.9 g/dL (3.4-5.0); ANION GAP 5 mmol/L (5-15); CALCIUM 8.3 mg/dL (8.5-10.1); CHLORIDE 108 mmol/L (98-107)
[2019-10-12 13:16] LABS: CREATININE 0.78 mg/dL (0.55-1.02); TROPONIN I < 0.015 ng/mL (0.000-0.045)
--- NOTE | 2019-10-12 13:39 | NUR ---
PT HAS REMOVED ALL MONITORS AND IS WALKING AROUND ROOM STEADILY WITH CANE.
--- NOTE | 2019-10-12 13:40 | NUR ---
PT UP FOR RECHECK. ALL RESULTS BACK.
== END 2019-10-12 13:52 | disposition home or self-care (01) ==
LOC: ED 13:41
DX: R07.2 Precordial pain (principal); R06.00 Dyspnea, unspecified; R94.31 Abnormal electrocardiogram [ECG] [EKG]; I10 Essential (primary) hypertension; E03.9 Hypothyroidism, unspecified; I25.10 Atherosclerotic heart disease of native coronary artery without angina pectoris; I25.2 Old myocardial infarction; E78.5 Hyperlipidemia, unspecified; Z90.89 Acquired absence of other organs; Z98.61 Coronary angioplasty status; Z87.891 Personal history of nicotine dependence
CPT/HCPCS: 36415; 71045; 80048; 82040; 84484; 85025; 93005; 99285

== ENCOUNTER 2020-04-27 05:15 | Day surgery (SDC) | payer MEDICARE ==
[2020-04-26 12:07] LABS: BASOPHILS % (AUTO) 0 % (0-1); EOSINOPHILS % (AUTO) 4 % (1-7); LYMPHOCYTES % (AUTO) 10 % (22-44); MEAN CORPUSCULAR HEMOGLOBIN 32.7 pg (27.0-34.8); MEAN CORPUSCULAR HGB CONC 34.4 g/dL (32.4-35.8); MONOCYTES % (AUTO) 8 % (2-9); NEUTROPHILS % (AUTO) 79 % (42-75); PLATELET COUNT 196 x10^3/uL (130-400); RED BLOOD COUNT 4.11 x10^6/uL (3.82-5.3); RED CELL DISTRIBUTION WIDTH 13.6 % (9.6-15.2)
[2020-04-26 12:08] LABS: MD NO
[2020-04-26 12:15] LABS: INTERNATIONAL NORMALIZED RATIO 0.99 (0.93-1.1); PROTHROMBIN TIME 10.5 Seconds (9.6-11.5)
[2020-04-26 12:18] LABS: ALBUMIN 3.2 g/dL (3.4-5.0); CALCIUM 8.8 mg/dL (8.5-10.1); CHLORIDE 107 mmol/L (98-107)
[2020-04-26 12:25] LABS: ALANINE AMINOTRANSFERASE 37 U/L (12-78); ALKALINE PHOSPHATASE 113 U/L (45-117); BILIRUBIN,TOTAL 0.6 mg/dL (0.2-1.0); CREATININE 1.02 mg/dL (0.55-1.02); TOTAL PROTEIN 7.1 g/dL (6.4-8.2)
[2020-04-26 12:44] LABS: ANION GAP 9 mmol/L (5-15)
[~2020-04-27] VITALS: Ht 165.1 cm; Wt 80.4 kg
[~2020-04-27 05:15] MED LIST changes: +FISH400C3 PO; +TURMERIC PO; +VITA1TAB19 PO
[2020-04-27] MEDS ORDERED: GABAPENTIN 300 MG CAPSULE PO ONE (06:00)
[2020-04-27] MEDS ORDERED: ACETAMINOPHEN 500 MG TABLET PO ONE (06:00)
[2020-04-27] MEDS ORDERED: VANCOMYCIN 1,400 MG in SODIUM CHLORIDE 0.9% 250 ML IV ONE (06:00)
[2020-04-27] MEDS ORDERED: VANCOMYCIN PER PHARMACY MC PRN (06:00)
[2020-04-27] MEDS ORDERED: CHLORHEXIDINE 15 ML UDC MM ONE (06:00)
[2020-04-27] MEDS ORDERED: LACTATED RINGERS 1,000 ML IV SCH (06:00)
[2020-04-27 06:06] VITALS: BP 150/78
[2020-04-27] MEDS ORDERED: MIDAZOLAM 1 MG/ML, 2ML ONE (06:31)
[2020-04-27] MEDS ORDERED: FENTANYL PF 250 MCG/5ML ONE (06:32)
[2020-04-27] MEDS ORDERED: KETOROLAC 60 MG/2 ML ONE (06:35)
[2020-04-27] MEDS ORDERED: TRANEXAMIC ACID 100 MG/ML, 10ML ONE ×2 (06:35)
[2020-04-27] MEDS ORDERED: ROPIvacaine/PF 0.5%, 20 ML ONE (06:36)
[2020-04-27] MEDS ORDERED: VANCOMYCIN 1,000 MG ONE (06:36)
[2020-04-27] MEDS ORDERED: SODIUM CHLORIDE 0.9% 50 ML ONE (06:36)
[2020-04-27] MEDS ORDERED: ROPIvacaine/PF 0.5%, 30 ML ONE (06:36)
[2020-04-27] MEDS ORDERED: EPINEPHRINE 1 MG/ML, 1ML ONE (06:36)
[2020-04-27] MEDS ORDERED: HYDROcodone/APAP 5/325 TABLET PO PRN (07:00)
[2020-04-27] MEDS ORDERED: ONDANSETRON 4 MG TABLET PO PRN (07:00)
[2020-04-27] MEDS ORDERED: ACETAMINOPHEN 650 MG/20.3 ML UDC PO PRN (07:00)
[2020-04-27] MEDS ORDERED: SENNA/DOCUSATE TABLET PO PRN (07:00)
[2020-04-27] MEDS ORDERED: ONDANSETRON 2MG/ML, 2ML IV PRN (07:00)
[2020-04-27] MEDS ORDERED: BISACODYL 10 MG SUPP PR PRN (07:00)
[2020-04-27] MEDS ORDERED: NITROGLYCERIN SINGLE TAB 0.4 MG SL PRN (07:00)
[2020-04-27] MEDS ORDERED: CEFAZOLIN PMX 2GM/50ML 50 ML IVPB SCH (07:00)
[2020-04-27] MEDS ORDERED: ZOLPIDEM 5MG TABLET PO PRN (07:00)
[2020-04-27] MEDS ORDERED: MAGNESIUM HYDROXIDE 8%, 30ML UDC PO PRN (07:00)
[2020-04-27] MEDS ORDERED: OXYcodone IR 5MG TABLET PO PRN (07:00)
[2020-04-27] MEDS ORDERED: DIPHENHYDRAMINE 50 MG CAPSULE PO PRN (07:00)
[2020-04-27] MEDS ORDERED: GLYCOPYRROLATE 0.2MG/1ML, 5ML ONE (07:10)
[2020-04-27] MEDS ORDERED: SUCCINYLCHOLINE 20 MG/ML, 10ML ONE (07:10)
[2020-04-27] MEDS ORDERED: ROCURONIUM 10MG/ML,5ML ONE (07:10)
[2020-04-27] MEDS ORDERED: ONDANSETRON 2MG/ML, 2ML ONE (07:10)
[2020-04-27] MEDS ORDERED: CEFAZOLIN 1,000 MG ONE (07:10)
[2020-04-27] MEDS ORDERED: PROPOFOL 10 MG/ML, 20ML ONE (07:10)
[2020-04-27] MEDS ORDERED: NEOSTIGMINE 1 MG/ML, 10ML ONE (07:10)
[2020-04-27] MEDS ORDERED: DIAZEPAM 5 MG/ML, 2ML IVPush PRN (07:30)
[2020-04-27] MEDS ORDERED: LABETALOL 5MG/ML, 20ML IV PRN (07:30)
[2020-04-27] MEDS ORDERED: ALBUTEROL SULFATE 2.5 MG/3 ML NPPB PRN (07:30)
[2020-04-27] MEDS ORDERED: FENTANYL PF 100 MCG/2ML IV PRN (07:30)
[2020-04-27] MEDS ORDERED: hydrALAzine 20 MG/ML, 1ML IV PRN (07:30)
[2020-04-27] MEDS ORDERED: OXYcodone 5 MG/5 ML ORAL.SOL UDC PO PRN (07:30)
[2020-04-27] MEDS ORDERED: HYDROmorphone 2 MG/ML, 1ML IVPush PRN (07:30)
[2020-04-27] MEDS ORDERED: MEPERIDINE/PF 25MG/ML,1ML ONE (08:07)
[2020-04-27] MEDS ORDERED: OXYcodone 5 MG/5 ML ORAL.SOL UDC ONE (08:07)
[2020-04-27] MEDS ORDERED: FENTANYL PF 100 MCG/2ML ONE (08:07)
[2020-04-27] MEDS ORDERED: DOCUSATE 100 MG CAPSULE PO SCH (09:00)
[2020-04-27] MEDS ORDERED: FLUOXETINE HCL 20 MG CAPSULE PO SCH (09:00)
[2020-04-27] MEDS ORDERED: FUROSEMIDE 20 MG TABLET PO SCH (09:00)
[2020-04-27] MEDS ORDERED: LIOTHYRONINE 5 MCG TABLET PO SCH (09:00)
[2020-04-27] MEDS ORDERED: MEMANTINE 5MG TABLET PO SCH (09:00)
[2020-04-27] MEDS ORDERED: LEVOTHYROXINE 25 MCG TABLET PO SCH (09:00)
[2020-04-27] MEDS ORDERED: TAMSULOSIN 0.4 MG CAP.ER.24H PO ONE (17:00)
[2020-04-27] MEDS ORDERED: ASPIRIN 81 MG TABLET EC PO SCH (18:00)
[2020-04-27] MEDS ORDERED: NS + 20MEQ KCL 1,000 ML IV SCH (19:31)
[2020-04-27] MEDS ORDERED: METOPROLOL TARTRATE 25 MG TAB PO SCH (21:00)
[2020-04-27] MEDS ORDERED: DONEPEZIL 10 MG TABLET PO SCH (21:00)
[2020-04-27] MEDS ORDERED: ATORVASTATIN 80 MG TABLET PO SCH (21:00)
[2020-04-28] MEDS ORDERED: DEXAMETHASONE 4 MG/ML, 1ML IVPush SCH (06:00)
== END 2020-04-27 19:30 | disposition home or self-care (01) ==
LOC: OUT 05:15
PROVIDERS: ATTEND Orthopaedic Surgery
DX: M16.0 Bilateral primary osteoarthritis of hip (principal); M25.752 Osteophyte, left hip; I25.2 Old myocardial infarction; I25.10 Atherosclerotic heart disease of native coronary artery without angina pectoris; M81.0 Age-related osteoporosis without current pathological fracture; Z20.822 Contact with and (suspected) exposure to COVID-19; Z79.01 Long term (current) use of anticoagulants; Z79.82 Long term (current) use of aspirin; Z79.890 Hormone replacement therapy; Z79.899 Other long term (current) drug therapy; Z87.891 Personal history of nicotine dependence; Z95.5 Presence of coronary angioplasty implant and graft; Z82.61 Family history of arthritis; Z82.49 Family history of ischemic heart disease and other diseases of the circulatory system
CPT/HCPCS: 27130; 36415; 72170; 73501; 80053; 83036; 85025; 85610; 85730; 87635; 93005; 97162; 97165; C1713; C1776; J0171; J0330; J0690; J1885; J2250; J2405; J2704; J2795; J3010; J3370; J7120; 76000; J2710